=== PATIENT | male | born 1955 | race Two or more races ===

== ENCOUNTER 2025-02-07 07:38 | Emergency (ER) | payer MEDICAID, SELFPAY ==
[2025-02-07] VITALS (23 sets, daily range): BP systolic 110–160; BP diastolic 56–99; PULSE 72–104; RESP 14–22; TEMP 36–37.2; O2SAT 86–100; BMI 24.3
--- NOTE | 2025-02-07 08:45 | EDNOTE_ITS ---
ED SOB =RME/HPI General Chief Complaint: Shortness of Breath/Dyspnea Stated Complaint: SOB Time Seen by Provider: 02/07/25 08:48 Arrival date/time: 02/07/25 07:38 Limitations: no limitations RME / HPI RME / HPI Narrative: DR. MAN MAIN ED EVALUATION: 69 year old male with past medical history significant for asthma on albuterol inhalers at home, no home oxygen, presents to the Emergency Department accompanied by family member with complaint of shortness of breath since 6 AM. Per family member, patient was also clammy. PMHx: CAD, s/p CABG x5 [place] [address] [facility], HFpEF 30% 06/2021, hypertension, asthma on albuterol inhalers at home, no home oxygen, anemia, and hypercholesterolemia. Social Hx: Current tobacco smoker, smokes 1-2 cigarettes a day, and has been smoking since age 5. No alcohol or substance use. Related Data Home Medications ?Medication ?Instructions ?Recorded ?Confirmed folic acid 1 mg tablet 1 mg PO QDAY 06/26/21 levothyroxine 25 mcg tablet 25 mcg PO QDAY 11/20/22 Previous Rx's ?Medication ?Instructions ?Recorded aspirin 81 mg tablet,delayed 81 mg PO QDAY 30 days #30 tabs 11/20/22 release potassium chloride 10 mEq 10 meq PO QDAY #30 tabs 10/31 11/21 tablet,extended release Allergies Allergy/AdvReac Type Severity Reaction Status Date / Time No Known Allergies Allergy Verified 02/07/25 08:45 Review of Systems Review of Systems Systems Reviewed: All systems reviewed, normal except as documented Narrative Review of Systems: GEN: No fever, no chills, no weight loss EYES: No discharge, no visual changes, no pain HEENT: No ear pain, no congestion, no sore throat PULM: + shortness of breath, no cough, no congestion CV: No chest pain, no dyspnea on exertion, no palpitations GI: No nausea, no vomiting, no diarrhea, no pain, no constipation : No frequency, no urgency and no dysuria MUSC/SKEL: No joint pain, no back pain SKIN: No rash PSYCH: No hallucinations, no depression HEME/LYMPH: No easy bleeding or bruising tendencies NEURO: No weakness, no headache Past Medical History Past Medical History CARDIAC: Positive Cardiac Disorders and Congestive Heart Failure RESPIRATORY: Positive Asthma GASTROINTESTINAL: Positive Ulcer PSYCHO/SOCIAL: Positive Anxiety OTHER HISTORY: Positive Chicken Pox, Measles and Mumps Family History FAMILY HISTORY: Positive Family Respiratory Disorders Surgical History SURGICAL: Positive Cardiac Surgery, Open Heart Surgery and Coronary Artery Bypass Graft Social History SMOKING STATUS: Light (< 1 pack/day) SECOND HAND EXPOSURE: Yes SUBSTANCE USE: does not use ALCOHOL: Never ED Exam General Limitations: Present no limitations General appearance: Present alert and in no apparent distress Head Head exam: Present atraumatic, normocephalic and normal inspection Eye Eye exam: Present normal appearance, PERRL and EOMI ENT ENT exam: Present normal exam, normal oropharynx and mucous membranes moist Neck Neck exam: Present normal inspection, full ROM and trachea midline Expanded Neck Exam Neck exam focused ED: Absent JVD Chest Chest inspection: Present normal inspection, symmetric chest wall rise and other (mid thoracotomy scar) Respiratory Respiratory exam: Present normal lung sounds bilaterally and other (bilateral basilar crackles); Absent wheezes Cardiovascular Cardiovascular exam: Present regular rate, normal rhythm and normal heart sounds Abdominal Exam Abdominal exam: Present soft and normal bowel sounds Extremities Exam Extremities exam: Present normal inspection and full ROM Back Exam Back exam: Present normal inspection and full ROM Neurological Exam Neurological exam: Present alert, oriented X3 and CN II-XII intact Psychiatric Psychiatric exam: Present depressed Skin Skin exam: Present warm, dry, intact and normal color Course Quality Measures none Orders Category Date Time Status COVID-19 Screening Questionnaire NOW Care 02/07/25 13:06 Active Social Science Manager NOW Care 02/07/25 08:51 Active Continuous Pulse Oximetry NOW Care 02/07/25 08:50 Active Decision to Admit X1 Care 02/07/25 13:06 Active EKG (ED ONLY) *Do not use* NOW Care 02/07/25 08:51 Active Insert IV NOW Care 02/07/25 09:11 Active EKG (ED Only) Stat Exams 02/07/25 08:50 Draft XR chest 1V portable Stat Exams 02/07/25 09:11 Completed Arterial Blood Gas Stat Lab 02/07/25 09:58 Completed B-Type Natriuretic Peptide Stat Lab 02/07/25 09:07 Completed Blood Culture (Lab) Stat Lab 02/07/25 13:08 Received CBC Stat Lab 02/07/25 09:07 Completed Comprehensive Metabolic Panel Stat Lab 02/07/25 09:07 Completed Lactic Acid [Lactate (Lactic Acid)] Stat Lab 02/07/25 13:08 Completed Magnesium Stat Lab 02/07/25 09:07 Completed Partial Thromboplastin Time Stat Lab 02/07/25 09:07 Completed Prothrombin Time with INR Stat Lab 02/07/25 09:07 Completed Troponin I Stat Lab 02/07/25 09:07 Completed Urinalysis Stat Lab 02/07/25 10:23 Completed Albuterol/Ipratr Rt Madeline [Duoneb Rt Madeline] Med 02/07/25 09:11 Discontinued 3 ml INH X1 ONE Budesonide Rt [Pulmicort Rt Madeline] Med 02/07/25 09:11 Discontinued 0.5 mg INH X1 ONE Doxycycline Inj [Vibramycin Inj] 100 mg Med 02/07/25 12:53 Discontinued Sodium Chloride 0.9% (Pop) [NS 0.9% mini bag] 100 ml IV X1 Furosemide Inj [Lasix Inj] Med 02/07/25 12:53 Discontinued 40 mg IVP X1 ONE MethylPREDNISolone.* [SoluMEDROL Inj] Med 02/07/25 09:11 Discontinued 125 mg IV X1 ONE Nitroglycerin Oint 2% [Nitro-paste Oint 2%] Med 02/07/25 12:53 Discontinued 1 inch TOP X1 ONE Sodium Chloride 0.9% 500 ml [Ns] 500 ml Med 02/07/25 09:11 Discontinued IV 999 mls/hr cefTRIAXone [Rocephin] 2 gm Med 02/07/25 12:55 Active SODIUM CHLORIDE 0.9% (Popper) [Ns 0.9% (P)] 50 ml IV QDAY Vital Signs Vital signs: Vital Signs Temperature 97.8 F 02/07/25 07:41 Pulse Rate 86 02/07/25 07:41 Respiratory Rate 20 02/07/25 07:41 Blood Pressure 148/56 H 02/07/25 07:41 Pulse Oximetry (%) 95 02/07/25 07:41 Oxygen Delivery Method Aerosol Mask 02/07/25 07:41 Shortness of Breath / Dyspnea MDM Narrative MDM Narrative:: Ella Rosado am scribing for and in the presence of Dr. Man. Patient data External records reviewed:: [facility] previous records (Reviewed last ED visit dated 11/20/22 discharged with the following: Abdominal mass) Clinical information provided by:: patient and family Social determinants that could affect healthcare access:: other (specify) (Current tobacco smoker, smokes 1-2 cigarettes a day, and has been smoking since age 5.) Patient has the following chronic illnesses:: CAD, s/p CABG x5 [place] [address] [facility], HFpEF 30% 06/2021, hypertension, asthma on albuterol inhalers at home, no home oxygen, anemia, and hypercholesterolemia. How is presenting disease/condition affected by chronic disease/condition?: exacerbated by Evaluation data The following diagnostics were reviewed and interpreted by me:: lab results, radiology exam(s) and EKG tracing(s) Lab and/or radiology exams considered but not ordered:: none Interpretation Summary: EKG#1: EKG at 0943 hours. Interpreted by me: sinus rhythm, rate 74, LVH, TX interval 149 ms, QRS duration 105 ms, QT/QTc 417/445, P-R-T axis 57, 70, and 231 ------- Procedure(s): XR chest 1V portable Accession Number(s): [id number] cc: Ricco Man MD; Paul Syed MD; NO PRIMARY/FAMILY,PHYSICIAN~ Examination: AP chest single view Technique one AP portable sitting chest single view Exam date and time: February 07, 2025 0929 hours Comparison January 10, 2023 INDICATIONS: Shortness of breath today. FINDINGS: Mild to moderate CHF Mild enlargement cardiac contour Mild fraying probably mitral Prominent vascular congestion and perihilar edema Consider superimposed pneumonia at the lung bases IMPRESSION: Mild to moderate CHF Consider superimposed pneumonia at the lung bases Dictated By: Paul Syed MD Medications / Prescriptions Medications or Prescriptions considered but not ordered:: none Medication administrations:: Medication Administration History Ceftriaxone Sodium 2 gm/ (Sodium Chloride) 50 mls @ 100 mls/hr IV QDAY BETTE Stop: 02/14/25 12:54 Last Infusion: 02/07/25 13:54 Dose: Infused Documented By: Admin: 02/07/25 13:37 Dose: 100 mls/hr Documented By: CG Discontinued Medications Albuterol/Ipratropium (Albuterol/Ipratropium (Duoneb) Rt Madeline 3 Ml Nebu) 3 ml INH X1 ONE Stop: 02/07/25 09:12 Last Admin: 02/07/25 09:50 Dose: 3 ml Documented By: CS Budesonide (Budesonide Rt 0.5 Mg/2 Ml Nebu) 0.5 mg INH X1 ONE Stop: 02/07/25 09:12 Last Admin: 02/07/25 09:50 Dose: 0.5 mg Documented By: CS Furosemide (Furosemide Inj 10 Mg/Ml 4ml Vial) 40 mg IVP X1 ONE Stop: 02/07/25 12:54 Last Admin: 02/07/25 13:36 Dose: 40 mg Documented By: CG Sodium Chloride (Ns) 500 mls @ 999 mls/hr IV .Q31M ONE Stop: 02/07/25 09:41 Last Infusion: 02/07/25 10:18 Dose: Infused Documented By: Admin: 02/07/25 09:43 Dose: 999 mls/hr Documented By: CG Doxycycline Hyclate 100 mg/ (Sodium Chloride) 100 mls @ 100 mls/hr IV X1 ONE Stop: 02/07/25 13:52 Last Admin: 02/07/25 13:37 Dose: 100 mls/hr Documented By: CG Methylprednisolone Sodium Succinate (Methylprednisolone Sod Succ 62.5 Mg/Ml 2ml Vial) 125 mg IV X1 ONE Stop: 02/07/25 09:12 Last Admin: 02/07/25 09:41 Dose: 125 mg Documented By: CG Nitroglycerin (Nitroglycerin Oint 2% 1 Inch Packet) 1 inch TOP X1 ONE Stop: 02/07/25 12:54 Last Admin: 02/07/25 13:40 Dose: Not Given Documented By: CG Non-Admin Reason: Contraindicated see above Consultations Consultation(s) initiated? (list below): Yes Consultation #1 (Physician, Specialty, Details): Discussed test HPI, PMHx, lab, radiology results and/or management with resident Dr. Hightower working with hospitalist. Will come evaluate the patient and decide on admission. Time: 13:06 Consultation #2 (Physician, Specialty, Details): Discussed test HPI, PMHx, lab, radiology results and/or management with resident Dr. Hightower working with hospitalist. Resident Dr. Hightower denied admission please see her note for details. Dr. Hightower to do the discharge medications. Time: 14:07 Diagnosis Shortness of Breath Differential Diagnosis: acute exacerbation of chronic obstructive airways disease, community acquired pneumonia and asthma with exacerbation Most likely diagnosis given after review of the tests above:: Acute CHF Hypoxia Pneumonia Admission Indicated Admission indicated?: indicated Explain why admission is indicated or not indicated:: Resident Dr. Hightower denied admission please see her note for details. Dr. Hightower to do the discharge medications. Admission Request Was there a request for admission?: Yes Admission Attestation Admission request attestation: Discussed case with [] from Hospitalist service regarding admission. Discussed patients ED course, exam findings, labs, and radiology results. The Hospitalist [agrees,declines] to accept the patient for admission. Disposition Plan Disposition Plan: Discharge Discharge Attestation Discharge Attestation: The patient and all family members were given an opportunity to ask questions and understood the discharge instructions. Discharge instructions specifically effects, indications for sooner follow up or return to the emergency department, and the expected course of current diagnosis. Patient condition: Stable Discharge Plan Plan Patient Disposition: HOME (Self Care) Discharge Disposition comment: Dr. Hightower to do the discharge medications. Prescriptions/Referrals Prescriptions/Med Rec: No Action folic acid 1 mg Tablet 1 mg PO QDAY levothyroxine 25 mcg tablet 25 mcg PO QDAY Patient Comments: TOME YOLI TABLETA TODOS LOS D aspirin 81 mg Tablet,Delayed Release (Dr/Ec) 81 mg PO QDAY 30 Days Qty: 30 1RF potassium chloride 10 mEq tablet extended release 10 meq PO QDAY Qty: 30 0RF Problem List Clinical Impression: Acute CHF, Hypoxia, Pneumonia Patient/Caregiver Discharge Instructions Education Materials: Coping with Heart Failure, ED Pneumonia (Adult) Additional Instructions: Please follow-up with your primary care physician within a week. Return to the Emergency Department as needed. Ashly un seguimiento con snowden m?dico de cabecera dentro de yoli semana. Regrese al Departamento de Emergencias seg?n sea necesario. Print Language: Yakut Stand Alone Forms: Ora Award Info., Patient Portal Info Letter
--- NOTE | 2025-02-07 08:50 | EKG_ITS ---
[facility] Test Date: 2025-02-07 Pat Name: VALENTINA RIVERA Department: Room: - Gender: Male Systems Software Manager: : [id number] Requested By: Ricco Velazco Order Number: [id number] Reading MD: Ricco Velazco Measurements Intervals [place] Rate: 74 P: 57 ID: [id number] QRS: 70 QRSD: 105 T: 231 QT: 417 QTc: 465 Interpretive Statements SINUS RHYTHM LEFT VENTRICULAR HYPERTROPHY AND ST-T CHANGE [VOLTAGE CRITERIA PLUS ST/T ABNORMALITY] Compared to ECG 11/18/2022 09:02:01 No significant changes /store/S0/[id number].pdf
--- NOTE | 2025-02-07 09:11 | XR_ITS ---
Examination: AP chest single view Technique one AP portable sitting chest single view Exam date and time: February 07, 2025 0929 hours Comparison January 10, 2023 INDICATIONS: Shortness of breath today. FINDINGS: Mild to moderate CHF Mild enlargement cardiac contour Mild fraying probably mitral Prominent vascular congestion and perihilar edema Consider superimposed pneumonia at the lung bases IMPRESSION: Mild to moderate CHF Consider superimposed pneumonia at the lung bases
[2025-02-07] MEDS: MethylPREDNISolone SOD SUCC 62.5 MG/ML 2ML VIAL 125 MG IV (09:41)
[2025-02-07] MEDS: SODIUM CHLORIDE 0.9% 500 ML 500 ML 999 ML IV (09:43)
[2025-02-07] MEDS: ALBUTEROL/IPRATROPIUM (Duoneb) RT SOL 3 ML NEBU INH (09:50)
[2025-02-07] MEDS: BUDESONIDE RT 0.5 MG/2 ML NEBU INH (09:50)
[2025-02-07 09:53] LABS: Basophils # (Auto) 0.1 Thou/mm3 (0.0-0.2); Basophils % (Auto) 1 % (0-2.5); Eosinophils # (Auto) 0.2 Thou/mm3 (0.0-0.5); Eosinophils % (Auto) 1 % (0-10); Hematocrit 40.3 % (41.0-53.0); Hemoglobin 13.9 g/dL (13.5-16.0); Immature Granulocytes % (Auto) 0 % (0-0); Immature Granulocytes Auto 0.02 Thou/mm3 (0.00-0.00); Lymphocytes # (Auto) 0.7 Thou/mm3 (1.0-4.8); Lymphocytes % (Auto) 6 % (10-50); Mean Corpuscular HGB Conc 34.5 g/dl (31.0-37.0); Mean Corpuscular Hemoglobin 30.4 pg (25.0-35.0); Mean Corpuscular Volume 88 fL (80-100); Monocytes # (Auto) 0.7 Thou/mm3 (0.0-0.8); Monocytes % (Auto) 6 % (0-12); Neutrophils # (Auto) 9.3 Thou/mm3 (1.8-7.7); Neutrophils % (Auto) 86 % (37-80); Nucleated Red Blood Cell % 0 /100 WBC (0); Platelet Count 260 Thou/mm3 (140-440); RDW Standard Deviation 44.9 fL (35.1-43.9); Red Blood Count 4.57 Miln/mm3 (4.50-5.90); White Blood Count 10.8 Thou/mm3 (3.8-10.6)
[2025-02-07 10:03] LABS: Base Excess -2 (-3-3); HCO3 23 mEq/L (20-26); Inspired O2, VO2 Liters 5 L/min; O2 Saturation 98 % (91-98); PCO2 39 mmHg (32.0-48.0); PO2 92 mmHg (83-108); pH, Arterial 7.39 (7.35-7.45)
[2025-02-07 10:12] LABS: INR 1.1 (0.9-1.3); Partial Thromboplastin Time 28.7 Seconds (22.0-36.0); Prothrombin Time 11.5 Seconds (9.0-12.2)
[2025-02-07 10:14] LABS: Alanine Aminotransferase 13 U/L (10-49); Albumin/Globulin Ratio 1.5 (1.2-2.2); Alkaline Phosphatase 96 U/L (46-116); Anion Gap 11 (7-16); Aspartate Amino Transferase 17 U/L (0-34); BUN/Creatinine Ratio 15 Ratio (12-20); Bilirubin,Total 0.8 mg/dL (0.3-1.2); Blood Urea Nitrogen 21 mg/dL (9-23); Calcium 8.3 mg/dL (8.3-10.6); Calcium (Corrected) 8.3 mg/dL (8.5-10.1); Chloride 109 mMol/L (98-107); Creatinine (Component) 1.4 mg/dL (0.6-1.3); Estimated Creatinine Clearance 31.1 mL/min (>60); Globulin 2.6 gm/dL (2.3-3.5); Glucose 98 mg/dL (74-106); Osmolality,Calculated 289 (275-295); Potassium 3.8 mMol/L (3.4-5.1); Sodium 144 mMol/L (136-145); Total Protein 6.6 gm/dL (5.7-8.2); Troponin I 0.035 ng/mL (0.0-0.045); eGFR 54 See Note
[2025-02-07 10:30] LABS: Collection Type, Urine Clean Catch; Squamous Epithelial Cell,Urine 0 /hpf (0-5)
[2025-02-07 11:10] LABS: Allen Test Performed/OK; Puncture Site Right Radial
[2025-02-07 11:10] LABS: Bilirubin,Urine Negative (Negative); Blood,Urine 2+ (Negative); Clarity,Urine Clear (Clear/Hazy); Color,Urine Yellow (Lt Yel-Yel); Glucose, Urine Negative (Negative); Hyaline Casts,Urine < 1 /hpf (0-1); Ketones,Urine Negative (Negative); Leukocyte Esterase,Urine Negative (Negative); Nitrite,Urine Negative (Negative); Protein,Urine 1+ (Neg - Trace); RBC,Urine 7 /hpf (0-3); Specific Gravity,Urine 1.025 (1.001-1.035); Urobilinogen,Urine Negative mg/dL (0.0-1.0); WBC,Urine 3 /hpf (0-5)
[2025-02-07 12:23] LABS: B-Type Natriuretic Peptide 1094 pg/mL (0-100)
[2025-02-07 13:17] LABS: Lactate (Lactic Acid) 1.5 mMol/L (0.4-2.0)
[2025-02-07] MEDS: FUROSEMIDE INJ 10 MG/ML 4ML VIAL 40 MG IVP (13:36)
[2025-02-07] MEDS: cefTRIAXone 2 GM in SODIUM CHLORIDE 0.9% (Popper) 50 ML IV (13:37)
[2025-02-07] MEDS: DOXYCYCLINE INJ 100 MG in SODIUM CHLORIDE 0.9% (POP) 100 ML IV (13:37)
--- NOTE | 2025-02-07 14:32 | ESCONSULT_ITS ---
HPI Data of Consult Consult date: 02/07/25 Requesting Physician: Dr Gurvinder Farias Attending Provider: Laura Mock DO Primary Care Provider: Physician No Primary/Family Consult Narrative Reason for consult: Admission of CHF exacerbation cc:: cc: Exam Vital Signs Temp Pulse Resp BP Pulse Ox O2 Del Method O2 Flow Rate 98.2 F 73 16 110/60 95 Room Air 5 02/07/25 12:07 02/07/25 13:40 02/07/25 13:00 02/07/25 13:40 02/07/25 13:00 02/07/25 12:07 02/07/25 09:52 Results Labs 02/07/25 09:07 02/07/25 09:07 Labs: Short CBC 02/07/25 Range/Units 09:07 WBC 10.8 H (3.8-10.6) Thou/mm3 Hgb 13.9 (13.5-16.0) g/dL Hct 40.3 L (41.0-53.0) % Plt Count 260 (140-440) Thou/mm3 BMP 02/07/25 09:07 Sodium 144 Potassium 3.8 Chloride 109 H Carbon Dioxide 24.0 BUN 21 Creatinine 1.4 H Glucose 98 Calcium 8.3 Cardiac Enzymes 02/07/25 Range/Units 09:07 Troponin I 0.035 (0.0-0.045) ng/mL Liver Function 02/07/25 Range/Units 09:07 Total Bilirubin 0.8 (0.3-1.2) mg/dL AST 17 (0-34) U/L ALT 13 (10-49) U/L Alkaline Phosphatase 96 (46-116) U/L Albumin 4.0 (3.4-4.8) gm/dL Urine 02/07/25 Range/Units 10:23 Urine Color Yellow (Lt Yel-Yel) Urine Clarity Clear (Clear/Hazy) Urine pH 6.0 (5.0-7.0) Ur Specific [place] 1.025 (1.001-1.035) Urine Protein 1+ A (Neg - Trace) Urine Glucose (UA) Negative (Negative) ABG Interpretation ABG results: 02/07/25 09:58 ABG pH 7.39 ABG pCO2 39 ABG pO2 92 ABG HCO3 23 ABG O2 Saturation 98 ABG Base Excess -2 Quality Measures Quality Measures none Advance care planning discussed with:: patient Medications Home Medications and Allergies Home Medications ?Medication ?Instructions ?Recorded ?Confirmed ?Type folic acid 1 mg tablet 1 mg PO QDAY 06/26/21 History levothyroxine 25 mcg tablet 25 mcg PO QDAY 11/20/22 History Allergies Allergy/AdvReac Type Severity Reaction Status Date / Time No Known Allergies Allergy Verified 02/07/25 08:45 Visit Medications Ceftriaxone Sodium 2 gm/ (Sodium Chloride) 50 mls @ 100 mls/hr IV QDAY BETTE Stop: 02/14/25 12:54 Last Infusion: 02/07/25 13:54 Dose: Infused Discontinued Medications Albuterol/Ipratropium (Albuterol/Ipratropium (Duoneb) Rt Madeline 3 Ml Nebu) 3 ml INH X1 ONE Stop: 02/07/25 09:12 Last Admin: 02/07/25 09:50 Dose: 3 ml Budesonide (Budesonide Rt 0.5 Mg/2 Ml Nebu) 0.5 mg INH X1 ONE Stop: 02/07/25 09:12 Last Admin: 02/07/25 09:50 Dose: 0.5 mg Furosemide (Furosemide Inj 10 Mg/Ml 4ml Vial) 40 mg IVP X1 ONE Stop: 02/07/25 12:54 Last Admin: 02/07/25 13:36 Dose: 40 mg Sodium Chloride (Ns) 500 mls @ 999 mls/hr IV .Q31M ONE Stop: 02/07/25 09:41 Last Infusion: 02/07/25 10:18 Dose: Infused Doxycycline Hyclate 100 mg/ (Sodium Chloride) 100 mls @ 100 mls/hr IV X1 ONE Stop: 02/07/25 13:52 Last Admin: 02/07/25 13:37 Dose: 100 mls/hr Methylprednisolone Sodium Succinate (Methylprednisolone Sod Succ 62.5 Mg/Ml 2ml Vial) 125 mg IV X1 ONE Stop: 02/07/25 09:12 Last Admin: 02/07/25 09:41 Dose: 125 mg Nitroglycerin (Nitroglycerin Oint 2% 1 Inch Packet) 1 inch TOP X1 ONE Stop: 02/07/25 12:54 Last Admin: 02/07/25 13:40 Dose: Not Given Assessment & Plan Plan RE: Shaun Anguiano , 71 year old M DATE OF CONSULTATION: 02/07/2025 Location of this patient is BED 18 in ED. REASON FOR CONSULTATION: CHF exacerbation vs. COPD ESTABLISHED DIAGNOSES: 1. COPD 2/2 chronic smoking >50 pk years 2. History of CHF 3. History of CABG 4. Hypothyroidism HISTORY OF PRESENT ILLNESS: Received call from ED around 1 PM on 02/07/2025 regarding admission for CHF exacerbation noted on chest x-ray showing diffuse vascular congestion. BNP also noted to be elevated on lab work. On examination in the ED, patient does not have any crackles or pedal edema, physical exam negative for any overt fluid overload state. Lab work also remarkable for CKD stage III. Patient was given IV Lasix x 1 in the ED, of note he ate missed his morning Lasix dose. 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 Michael in [place] and patient is scheduled for a pacemaker in the near future. He also has an appointment with his PCP tomorrow for COPD workup. Patient is a chronic smoker, and is currently actively smoking. As per patient he does not endorse any change in status from baseline, denies shortness of breath, chest discomfort or any other complaints at this time. We anticipate improvement with Lasix x 1 in the ED. Patient counseled extensively to follow-up with PCP and restaurant kitchen and service manager. May return to the ED if he feels short of breath/hypoxic on ambulation during or after discharge. PHYSICAL EXAMINATION: Constitutional Alert, oriented x3 and comfortable, elderly. HEENT Vision grossly intact. Patent nares. Trachea midline. sats 92-95% on RA Respiratory Chest midline scar on inspection, diffuse wheezes on auscultation, no crackles. Cardiovascular S1 and S2 audible, RRR. No murmurs or carotid bruit. No gross JVD. Abdominal Soft and non tender to palpation in all quadrants. BS + Genitourinary No bladder tenderness, no flank pain. Normal to palpation. Musculoskeletal Extremities tone within normal limits. No LE edema. Neurological CN II - XII grossly intact. Extremity motor and sensation grossly intact. Skin Warm, dry and intact. Senile purpurae. Psychiatric Patient has a good affect, is cooperative. IMPRESSION: 1. Acute Bronchitis 2/2 COPD 2. Poorly managed CHF, but not in overt exacerbation 3. CKD 4. BNP elevated, Trops negative RECOMMENDATION: - Follow up PCP at the earliest , have home oxygen set up for shortness of breath on walking - Follow-up with your restaurant kitchen and service manager Dr. Michael for CHF management - Continue Lasix 40 mg daily to prevent fluid overload - Start Trelegy inhaler daily for COPD - Ordered Doxycycline 100mg twice a day x7 days for possible RT lung pneumonic infiltrates. - Keep rescue inhaler Ventolin with you at all times, may use 2 puffs up to every 2 hours for wheezing - Continue home aspirin, folic acid, levothyroxine and potassium supplement - Patient and family advised re: precautions chest pain or worsening SOB. Return to ED if symptoms worsen. We are grateful to be able to participate in Mr Anguiano's care. We wish him the best. Plan of care discussed with attending Adolfo Ash M.D. PGY2 Disclaimer: Minor errors in district representative may be present as this note was dictated using voice recognition software. Attending Provider Attestation/Addendum Laura Rosado, , attest that I was physically present for the bolivar portions of the service and evaluated the patient with the resident and I reviewed and discussed the case with the resident and agree with the resident's findings and plans of care as documented above Patient is a 69-year-old male with past medical history CAD status post CABG, asthma, hypertension, chronic tobacco use who presented to the ED due to shortness of breath. Per granddaughter at bedside, patient was chopping wood when all of a sudden he felt very short of breath to come to the ED. Patient was noted to be hypoxic on presentation with a saturation of 87%. He was subsequently placed on 5 L nasal cannula and given breathing treatments, steroids, Lasix, IV antibiotics and nitroglycerin. Chest x-ray was done showing mild CHF with possible pneumonia at the right lung base. EKG was done showing no new ST or T wave changes. At time of evaluation, patient was weaned off to room air and stated that he was feeling well. ABG was within normal limits. Patient was able to speak in full sentences and denied any chest pain, productive sputum, cough, current shortness of breath. BNP noted to be 1094. Troponin negative. Patient does not look fluid overloaded on exam. Lungs are clear to auscultation bilaterally. No peripheral edema noted. Patient states that he follows with Dr. Michael outpatient and is scheduled to see him in 2 days. Patient can be discharged home as he is back at baseline and no longer short of breath. Patient is stable for discharge home. Patient is to be discharged with doxycycline and lasix. Granddaughter states she will take patient to PCP tomorrow and to his restaurant kitchen and service manager.
== END 2025-02-07 16:55 | disposition home or self-care (01) ==
PROVIDERS: Emergency Provider Family Medicine
DX: J18.9 Pneumonia, unspecified organism (principal); R09.02 Hypoxemia; I11.0 Hypertensive heart disease with heart failure; I50.32 Chronic diastolic (congestive) heart failure; J45.909 Unspecified asthma, uncomplicated; F17.210 Nicotine dependence, cigarettes, uncomplicated; I25.10 Atherosclerotic heart disease of native coronary artery without angina pectoris; Z95.1 Presence of aortocoronary bypass graft; Z79.82 Long term (current) use of aspirin
CPT/HCPCS: 36415; 36600; 71045; 80053; 81001; 82803; 83605; 83735; 83880; 84484; 85025; 85610; 85730; 87040; 93005; 94640; 96365; 96368; 99284; A9270; J0696; J1938; J2919; J3490; J7030; J7040